=== PATIENT | female | born 1950 | race Caucasian/White ===

== ENCOUNTER 2021-12-24 19:57 | Emergency (ER) | payer OTHER, MEDICARE ==
[2021-12-24 20:03] VITALS: BP 148/91; PULSE 94; RESP 18; TEMP 98.5; BMI 25.8
[2021-12-24 20:22] LABS: HEMATOCRIT 42.9 % (32.4-45.2); HEMOGLOBIN 14.9 G/dL (10.7-15.3); MCH 33.7 pg (25.7-33.7); MCHC 34.7 g/dl (32.0-36.0); MEAN CELL VOLUME 97.3 fl (80-96); MEAN PLT VOLUME 8.1 fl (7.5-11.1); PLATELET COUNT 180.1 10^3/uL (134-434); RBC 4.41 10^6/uL (3.60-5.2); WHITE BLOOD COUNT 8.2 10^3/uL (4.0-10.8)
[2021-12-24 20:29] LABS: INR 0.92 (0.83-1.09); PROTHROMBIN TIME (PATIENT) 10.6 SEC (9.7-13.0)
[2021-12-24 21:42] LABS: BLOOD UREA NITROGEN 14.6 mg/dL (7-18); CALCIUM 8.5 mg/dL (8.5-10.1)
[2021-12-24 21:43] LABS: ALBUMIN 3.5 g/dl (3.4-5.0)
[2021-12-24 21:45] LABS: CREATININE 0.9 mg/dL (0.55-1.3)
[2021-12-24 21:47] LABS: BILIRUBIN,TOTAL 0.3 mg/dL (0.2-1); TOT PROT 6.2 g/dl (6.4-8.2)
== END 2021-12-25 00:10 | disposition home or self-care (01) ==
LOC: FER 19:57
DX: R07.9 Chest pain, unspecified (principal)
CPT/HCPCS: 36415; 71045-TC-FY; 71275-TC; 80053; 82550; 84484; 85027; 85610; 93005; 99285-25; Q9967